=== PATIENT | female | born 1960 | race Caucasian/White ===

== ENCOUNTER 2019-04-01 19:17 | Emergency (ER) | payer BC, OTHER ==
[2019-04-01 21:06] LABS: ABS Eosinophils 0.2 10^3/ul (0-0.6); ABS Lymphocytes 0.6 10^3/ul (1.0-4.8); ABS Monocytes 0.4 10^3/ul (0-0.8); ABS Neutrophils 2.2 10^3/ul (1.5-7.7); Eosinophil % 6.4 %; Hematocrit 42 % (35-47); Hemoglobin 14.2 g/dL (12.0-16.0); Lymphocyte % 16.7 %; Mean Corpuscular HGB Conc 34 g/dL (31-36); Mean Corpuscular Hemoglobin 31 pg (27-31); Mean Corpuscular Volume 91 fL (80-97); Mean Platelet Volume 7.3 fL (7.4-10.4); Nucleated Red Blood Cells % 0.1; Platelet Count 152 10^3/uL (150-450); Red Blood Count 4.57 10^6 /uL (3.70-4.87); Red Cell Distribution Width 15 % (10-15); White Blood Count 3.4 10^3/uL (3.5-10.8)
[2019-04-01 21:15] LABS: Activated Partial Thrombo Time 32.4 seconds (26.0-38.0); INR 1.01 (0.82-1.09)
[2019-04-01 21:22] LABS: Albumin 4.5 g/dL (3.2-5.2); Albumin/Globulin Ratio 1.7 (1-3); BUN/Creatinine Ratio 13.9 (8-20); Calcium 10.2 mg/dL (8.6-10.3); EGFR African American 89.8 (>60); EGFR Non-African American 74.2 (>60); Globulin 2.7 g/dL (2-4); Potassium 3.7 mmol/L (3.5-5.0); Total Bilirubin 0.6 mg/dL (0.2-1.0); Total Protein 7.2 g/dL (6.4-8.9)
[2019-04-01 21:33] LABS: Urine Appearance Cloudy; Urine Bacteria Absent (Absent); Urine Bilirubin Negative (Negative); Urine Blood 1+ (Negative); Urine Color Yellow; Urine Glucose 1+(50 mg/dL) (Negative); Urine Ketones Negative (Negative); Urine Nitrite Negative (Negative); Urine Protein 1+(30 mg/dL) (Negative); Urine Red Blood Cell Trace(0-2/hpf) (Absent); Urine Squamous Epithelial Cell Present (Absent); Urine Urobilinogen Negative (Negative); Urine White Blood Cell Trace(0-5/hpf) (Absent)
--- NOTE | 2019-04-01 21:49 | ED ---
HPI Febrile Illness - HPI Summary HPI Summary: This pt is a 58 y/o F presenting to [facility] with a CC of body aches and a fever of 100.4 F. She states that the symptoms began this morning and her fever has never exceeded 100.4 F but has fluctuated below that temperature. The pt is on treatments for multiple myeloma and has a PMHx of colon cancer. She states no other symptoms and denies chills, sore throat, diaphoresis, cough, COB, CP, abdominal pain, V/N/D, rash, headache, and urinary symptoms. She has no aggravating and alleviating factors. She also has a chronic mild cough. She has not taken any medications for her fever and myalgia today. - History of Current Complaint Chief Complaint: EDFever Time Seen by Provider: 04/01/19 19:47 Hx Obtained From: Patient Onset/Duration: Started Days Ago, Still Present Timing: Constant Temperature: 100.4 F Initial Severity: Mild Current Severity: Moderate Pain Intensity: 4 Pain Scale Used: 0-10 Numeric Aggravating Factors: Nothing Alleviating Factors: Nothing Associated Signs and Symptoms: Negative - chills, diaphoresis, SOB, CP, sore throat, abdominal pain, V/N/D, rash, headache, and urinary symptoms, Cough - chronic, Myalgia, Other: - Fever of 100.4 - Allergy/Home Medications Allergies/Adverse Reactions: Allergies Allergy/AdvReac Type Severity Reaction Status Date / Time No Known Allergies Allergy Verified 04/01/19 19:23 Home Medications: Home Medications Acyclovir* [Zovirax 200 MG CAP*] 400 mg PO BID 04/01/19 [History Confirmed 04/01] Calcium Carbonate [Calcium] 500 mg PO DAILY 04/01/19 [History Confirmed 04/01/19 ] Cholecalciferol TAB* [Vitamin D TAB*] 400 i.u. PO DAILY 04/01/19 [History Confirmed 04/01/19] Lenalidomide [Revlimid] 10 mg PO DAILY 04/01/19 [History Confirmed 04/01/19] PMH/Surg Hx/FS Hx/Imm Hx Previously Healthy: No Cardiovascular History: Reports: Hx Hypotension Denies: Hx Angina GI History: Reports: Other GI Disorders - colon cancer Musculoskeletal History: Reports: Other Musculoskeletal History - multiple myeloma - Cancer History Cancer Type, Location and Year: Multiple myeloma, Colon cancer Infectious Disease History: No Infectious Disease History: Denies: Traveled Outside the [place] in Last 30 Days - Family History Known Family History: Positive: Other - Cancer, paternal and maternal - Social History Alcohol Use: None Hx Substance Use: No Substance Use Type: Reports: None Hx Tobacco Use: No Smoking Status (MU): Never Smoked Tobacco Review of Systems Positive: Fever - 100.4 F. Negative: Chills, Skin Diaphoresis Negative: Sore Throat Negative: Chest Pain Positive: Cough - chronic. Negative: Shortness Of Breath Negative: Abdominal Pain, Vomiting, Diarrhea, Nausea Genitourinary: Negative Positive: Myalgia Negative: Rash Negative: Headache All Other Systems Reviewed And Are Negative: Yes Physical Exam - Summary Physical Exam Summary: Constitutional: Well-developed, Well-nourished, Alert. (-) Distressed Skin: Warm, Dry HENT: Normocephalic; Atraumatic Eyes: Conjunctiva normal Neck: Musculoskeletal ROM normal neck. (-) JVD, (-) Stridor, (-) Tracheal deviation Cardio: Rhythm regular, rate normal, Heart sounds normal; Intact distal pulses; The pedal pulses are 2+ and symmetric. Radial pulses are 2+ and symmetric. (-) Murmur Pulmonary/Chest wall: Effort normal. (-) Respiratory distress, (-) Wheezes, (-) Rales Abd: Soft, (-) tenderness, (-) Distension, (-) Guarding, (-) Rebound Musculoskeletal: (-) Edema Lymph: (-) Cervical adenopathy Neuro: Alert, Oriented x3 Psych: Mood and affect Normal Triage Information Reviewed: Yes Vital Signs On Initial Exam: Initial Vitals Temp Pulse Resp BP Pulse Ox 99.8 F 76 18 106/83 97 04/01/19 19:22 04/01/19 19:22 04/01/19 19:22 04/01/19 19:22 04/01/19 19:22 Vital Signs Reviewed: Yes Diagnostics - Vital Signs Vital Signs Temp Pulse Resp BP Pulse Ox 04/01/19 21:20 99.3 F 04/01/19 21:16 74 18 111/71 98 04/01/19 21:15 81 21 95 04/01/19 19:22 99.8 F 76 18 106/83 97 - Laboratory Lab Results: Lab Results 04/01/19 04/01/1904/01/19 Range/Units 20:51 20:51 20:51 WBC 3.4 L (3.5-10.8) 10^3/uL RBC 4.57 (3.70-4.87) 10^6 /uL Hgb 14.2 (12.0-16.0) g/dL Hct 42 (35-47) % MCV 91 (80-97) fL MCH 31 (27-31) pg MCHC 34 (31-36) g/dL RDW 15 (10-15) % Plt Count 152 (150-450) 10^3/uL MPV 7.3 L (7.4-10.4) fL Neut % (Auto) 63.4 % Lymph % (Auto) 16.7 % [place] % (Auto) 12.5 % Eos % (Auto) 6.4 % Baso % (Auto) 1.0 % Absolute Neuts (auto) 2.2 (1.5-7.7) 10^3/ul Absolute Lymphs (auto) 0.6 L (1.0-4.8) 10^3/ul Absolute Monos (auto) 0.4 (0-0.8) 10^3/ul Absolute Eos (auto) 0.2 (0-0.6) 10^3/ul Absolute Basos (auto) 0.0 (0-0.2) 10^3/ul Absolute Nucleated RBC 0.0 10^3/ul Nucleated RBC % 0.1 INR (Anticoag Therapy) 1.01 (0.82-1.09) APTT 32.4 (26.0-38.0) seconds Sodium 135 (135-145) mmol/L Potassium 3.7 (3.5-5.0) mmol/L Chloride 100 L (101-111) mmol/L Carbon Dioxide 27 (22-32) mmol/L Anion Gap 8 (2-11) mmol/L BUN 11 (6-24) mg/dL Creatinine 0.79 (0.51-0.95) mg/dL Est GFR ( Amer) 89.8 (>60) Est GFR (Non-Af Amer) 74.2 (>60) BUN/Creatinine Ratio 13.9 (8-20) Glucose 112 H (70-100) mg/dL Lactic Acid (0.5-2.0) mmol/L Calcium 10.2 (8.6-10.3) mg/dL Total Bilirubin 0.60 (0.2-1.0) mg/dL AST 45 H (13-39) U/L ALT 46 (7-52) U/L Alkaline Phosphatase 104 (34-104) U/L Troponin I 0.00 (<0.04) ng/mL Total Protein 7.2 (6.4-8.9) g/dL Albumin 4.5 (3.2-5.2) g/dL Globulin 2.7 (2-4) g/dL Albumin/Globulin Ratio 1.7 (1-3) Urine Color Urine Appearance Urine pH (5-9) Ur Specific [place] (1.010-1.030) Urine Protein (Negative) Urine Ketones (Negative) Urine Blood (Negative) Urine Nitrate (Negative) Urine Bilirubin (Negative) Urine Urobilinogen (Negative) Ur Leukocyte Esterase (Negative) Urine WBC (Auto) (Absent) Urine RBC (Auto) (Absent) Ur Squamous Epith Cells (Absent) Urine Bacteria (Absent) Urine Glucose (Negative) 04/01/19 04/01/19 Range/Units 20:51 21:23 WBC (3.5-10.8) 10^3/uL RBC (3.70-4.87) 10^6 /uL Hgb (12.0-16.0) g/dL Hct (35-47) % MCV (80-97) fL MCH (27-31) pg MCHC (31-36) g/dL RDW (10-15) % Plt Count (150-450) 10^3/uL MPV (7.4-10.4) fL Neut % (Auto) % Lymph % (Auto) % [place] % (Auto) % Eos % (Auto) % Baso % (Auto) % Absolute Neuts (auto) (1.5-7.7) 10^3/ul Absolute Lymphs (auto) (1.0-4.8) 10^3/ul Absolute Monos (auto) (0-0.8) 10^3/ul Absolute Eos (auto) (0-0.6) 10^3/ul Absolute Basos (auto) (0-0.2) 10^3/ul Absolute Nucleated RBC 10^3/ul Nucleated RBC % INR (Anticoag Therapy) (0.82-1.09) APTT (26.0-38.0) seconds Sodium (135-145) mmol/L Potassium (3.5-5.0) mmol/L Chloride (101-111) mmol/L Carbon Dioxide (22-32) mmol/L Anion Gap (2-11) mmol/L BUN (6-24) mg/dL Creatinine (0.51-0.95) mg/dL Est GFR ( Amer) (>60) Est GFR (Non-Af Amer) (>60) BUN/Creatinine Ratio (8-20) Glucose (70-100) mg/dL Lactic Acid 0.5 (0.5-2.0) mmol/L Calcium (8.6-10.3) mg/dL Total Bilirubin (0.2-1.0) mg/dL AST (13-39) U/L ALT (7-52) U/L Alkaline Phosphatase (34-104) U/L Troponin I (<0.04) ng/mL Total Protein (6.4-8.9) g/dL Albumin (3.2-5.2) g/dL Globulin (2-4) g/dL Albumin/Globulin Ratio (1-3) Urine Color Yellow Urine Appearance Cloudy Urine pH 5.0 (5-9) Ur Specific [place] 1.020 (1.010-1.030) Urine Protein 1+(30 mg/dl) A (Negative) Urine Ketones Negative (Negative) Urine Blood 1+ A (Negative) Urine Nitrate Negative (Negative) Urine Bilirubin Negative (Negative) Urine Urobilinogen Negative (Negative) Ur Leukocyte Esterase Negative (Negative) Urine WBC (Auto) Trace(0-5/hpf) (Absent) Urine RBC (Auto) Trace(0-2/hpf) (Absent) Ur Squamous Epith Cells Present A (Absent) Urine Bacteria Absent (Absent) Urine Glucose 1+(50 mg/dl) A (Negative) Result Diagrams: 04/01/19 20:51 04/01/19 20:51 Lab Statement: Any lab studies that have been ordered have been reviewed, and results considered in the medical decision making process. Course/Dx - Course Course Of Treatment: his pt is a 58 y/o F presenting to [facility] with a CC of body aches and a fever of 100.4 F. She states that the symptoms began this morning and her fever has never exceeded 100.4 F but has fluctuated below that temperature. Her PE shows no abnormal findings. CXR shows no acute disease. Abnormal lab findings include Urine protein, Urine blood, Ur Squamous Epith Cells, Urine Glucose. Pt will be signed out from Dr. Bradley to Dr. Haro at shift change 2200 04/01/19 pending a VL of her lower extremities bilaterally. - Diagnoses Provider Diagnoses: Fever Discharge - Sign-Out/Discharge Documenting (check all that apply): Sign-Out Patient Signing out patient TO: Coreen Haro Patient Received Moderate/Deep Sedation with Procedure: No - Discharge Plan Condition: Stable Referrals: No Primary Care Phys,NOPCP [Primary Care Provider] - - Billing Disposition and Condition Condition: STABLE - Attestation Statements Document Initiated by Mar: Yes Documenting Scribe: Magen Katz Provider For Whom Scribe is Documenting (Include Credential): Jenny Taveras MD Scribe Attestation: I, Magen Katz, scribed for Jenny Nunez MD on 04/01/19 at 2233. Scribe Documentation Reviewed: Yes Provider Attestation: The documentation as recorded by the Magen mcclellan accurately reflects the service I personally performed and the decisions made by me, Jenny Nunez MD Status of Scribe Document: Viewed
--- NOTE | 2019-04-01 23:17 | ED ---
Progress - Progress Note Progress Note: This patient was signed out from Dr. Nunez to Dr. Haro at 22:00 pending venous doppler study. Venous doppler study impression: No acute findings. No evidence of deep vein thrombosis. ED physician has reviewed this imaging report. The patient will be discharged and follow up with her PCP and oncologist. The patient is agreeable with this plan. Course/Dx - Course Course Of Treatment: This patient was signed out from Dr. Nunez to Dr. Haro at 22:00 04/01/19 pending venous doppler study. Venous doppler study impression: No acute findings. No evidence of deep vein thrombosis. ED physician has reviewed this imaging report. The patient will be discharged and follow up with her PCP and oncologist. The patient is agreeable with this plan. - Diagnoses Provider Diagnoses: Fever Discharge - Sign-Out/Discharge Documenting (check all that apply): Patient Departure - DC, Receiving Sign-Out Receiving patient FROM: Jenny Nunez Patient Received Moderate/Deep Sedation with Procedure: No - Discharge Plan Condition: Stable Disposition: HOME Patient Education Materials: Fever in Adults (ED) Referrals: [facility] [Outside] Additional Instructions: Follow up with your oncologist. PLEASE RETURN TO THE ED IMMEDIATELY FOR WORSENING OR CONCERNING SYMPTOMS. - Billing Disposition and Condition Condition: STABLE Disposition: Home - Attestation Statements Document Initiated by Mar: Yes Documenting [place]: Jarrod Lo Provider For Whom Mar is Documenting (Include Credential): Coreen Haro MD Scribe Attestation: Jarrod Mack scribed for Coreen Haro MD on 04/02/19 at 0640. Scribe Documentation Reviewed: Yes Provider Attestation: The documentation as recorded by the Jarrod mcclellan accurately reflects the service I personally performed and the decisions made by , Coreen Haro MD Status of Scribramon Document: Viewed
[2019-04-01 23:53] VITALS: BP 94/64
[2019-04-03 23:50] LABS: B garinii/B afzelii PCR Negative (Negative); B mayonii PCR Negative (Negative)
== END 2019-04-01 23:55 | disposition home or self-care (01) ==
LOC: ED 19:17
DX: R50.9 Fever, unspecified (principal); M79.10 Myalgia, unspecified site; R05 Cough; C90.00 Multiple myeloma not having achieved remission; Z85.038 Personal history of other malignant neoplasm of large intestine
CPT/HCPCS: 36415; 71045; 80053; 81003; 81015; 83605; 84484; 85025; 85610; 85730; 87040; 87086; 87476; 87798; 93005; 93970; 99283